=== PATIENT | male | born 1995 | race Caucasian/White ===

== ENCOUNTER 2022-07-15 16:31 | Inpatient (IN) ==
[2022-07-15 18:38] LABS: Urine Appearance Clear; Urine Bilirubin Negative (Negative); Urine Blood Negative (Negative); Urine Color Straw; Urine Glucose Negative (Negative); Urine Ketones Negative (Negative); Urine Nitrite Negative (Negative); Urine Protein Negative (Negative); Urine Specific Gravity 1.006 (1.002-1.030); Urine Urobilinogen Negative (Negative)
[2022-07-16 06:48] LABS: ABS Eosinophils 0.3 10^3/ul (0-0.6); ABS Lymphocytes 2.5 10^3/ul (1.0-4.8); ABS Monocytes 0.4 10^3/ul (0-0.8); ABS Neutrophils 2.2 10^3/ul (1.5-7.7); Eosinophil % 5.1 %; Hematocrit 43 % (42-52); Hemoglobin 14.3 g/dL (14.0-18.0); Lymphocyte % 46.4 %; Mean Corpuscular HGB Conc 33 g/dL (31-36); Mean Corpuscular Hemoglobin 31 pg (27-31); Mean Corpuscular Volume 93 fL (80-94); Nucleated Red Blood Cells % 0.1; Platelet Count 272 10^3/uL (150-450); Red Blood Count 4.61 10^6 /uL (4.18-5.48); Red Cell Distribution Width 14 % (10-15); White Blood Count 5.4 10^3/uL (3.5-10.8)
[2022-07-16 07:31] LABS: Albumin 4.2 g/dL (3.2-5.2); Albumin/Globulin Ratio 1.8 (1-3); Calcium 9.6 mg/dL (8.6-10.3); Globulin 2.3 g/dL (2-4); HDL Cholesterol 38.3 mg/dL; Potassium 4.6 mmol/L (3.5-5.0); Total Bilirubin 0.5 mg/dL (0.2-1.0); Total Protein 6.5 g/dL (6.4-8.9); eGFR CKD-EPI 105.8 (>60)
[2022-07-16 07:45] LABS: TSH Ultra Thyroid Stim Horm 2.23 mcIU/mL (0.34-5.60)
[2022-07-16] MEDS: Vitamin THERAPEUTIC TAB PO SCH (09:37)
[2022-07-16] MEDS: Nicotine PATCH 21 MG/24 HR PATCH TRANSDERM SCH (09:37)
[2022-07-16] MEDS: Al Hydrox/Mg Hydrox/Simet LIQ 30 ML UDC PO PRN (15:04)
[2022-07-16] MEDS: OLANZapine 5 mg TAB *ODT PO PRN (15:21)
[2022-07-17] MEDS: Vitamin THERAPEUTIC TAB PO SCH (07:27)
[2022-07-17] MEDS: Nicotine PATCH 21 MG/24 HR PATCH TRANSDERM SCH ×2 (08:55→09:30)
[2022-07-17] MEDS: Nicotine GUM 2MG FRUIT FLAVOR PO PRN (18:38)
[2022-07-17] MEDS: OLANZapine 5 mg TAB *ODT PO PRN (20:35)
[2022-07-18] MEDS: Vitamin THERAPEUTIC TAB PO SCH (07:18)
[2022-07-18] MEDS: Nicotine PATCH 21 MG/24 HR PATCH TRANSDERM SCH (07:24)
[2022-07-18] MEDS: Nicotine GUM 2MG FRUIT FLAVOR PO PRN (15:17)
[2022-07-18] MEDS: Al Hydrox/Mg Hydrox/Simet LIQ 30 ML UDC PO PRN (17:26)
[2022-07-19] MEDS: Vitamin THERAPEUTIC TAB PO SCH (08:13)
[2022-07-19] MEDS: Nicotine PATCH 21 MG/24 HR PATCH TRANSDERM SCH (08:13)
[2022-07-19] MEDS: Al Hydrox/Mg Hydrox/Simet LIQ 30 ML UDC PO PRN (12:11)
[2022-07-19 14:04] VITALS: BP 119/69
[2022-08-03] MEDS ORDERED: RISPERIDONE SUBCUT SCH (09:00)
== END 2022-07-19 13:46 | disposition home or self-care (01) | DRG 882 ==
LOC: ED 16:31 → EDHOLD 19:10 → BSU 20:31
PROVIDERS: ADMIT Psychiatry & Neurology Psychiatry; ATTEND Psychiatry & Neurology Psychiatry